=== PATIENT | female | born 1945 | race Asian ===

== ENCOUNTER 2018-08-10 13:29 | Inpatient (IN) | payer OTHER ==
[~2018-08-10] VITALS: Ht 149.9 cm; Wt 43.5 kg
[2018-08-10] MEDS ORDERED: POTASSIUM CHLORIDE (SR) 20 MEQ TAB PO STA (15:20)
[2018-08-10] MEDS ORDERED: POTASSIUM CHLORIDE 100 ML IVPB ONE (15:30)
[2018-08-10] MEDS ORDERED: AMLO5TAB4 PO (15:56)
[2018-08-10] MEDS ORDERED: LOSA50TA14 PO (15:57)
[2018-08-10] MEDS ORDERED: SOD CHLORIDE 0.9% 1,000 ML IV STA (16:32)
[2018-08-10] MEDS ORDERED: ONDANSETRON 4 MG INJ IV PRN ×2 (17:00→19:30)
[2018-08-10] MEDS ORDERED: ACETAMINOPHEN 325 MG TAB PO PRN ×2 (17:00→19:30)
--- NOTE | 2018-08-10 18:24 | ERD ---
ER Documentation Chief Complaint Chief Complaint ASYMTOMATIC, SEND BY CLINIC DUE K 2.8 HPI Patient is a 73-year-old female with "kidney issues" and hypertension who presents for low potassium. The patient was sent by the primary doctor Dr. Baez for potassium issues. The patient's potassium was 2.8 on outpatient laboratory studies. The patient has no symptoms at this time. Upon review of old medical records this is the patient's first visit to the emergency department. ROS All systems reviewed and are negative except as per history of present illness. Medications Home Meds Reported Medications Losartan Potassium* (Losartan Potassium*) 50 Mg Tablet, 50 MG PO DAILY, TAB 08/10/18 Amlodipine Besylate* (Norvasc*) 5 Mg Tablet, 5 MG PO DAILY, TAB 08/10/18 Allergies Allergies: Coded Allergies: No Known Allergy (Unverified , 08/10/18) PMhx/Soc Hypertension and "kidney issues" Hx Alcohol Use: No Hx Substance Use: No Hx Tobacco Use: No Smoking Status: Never smoker FmHx Family History: No diabetes Physical Exam Vitals Vital Signs Date Temp Pulse Resp B/P (MAP) Pulse Ox O2 O2 Flow FiO2 Time Delivery Rate 08/10/18 71 18 181/91 98 Room Air 18:17 (121) 08/10/18 78 16 181/74 99 Room Air 16:00 (109) 08/10/18 97.3 80 18 213/95 99 13:31 (134) Physical Exam Const: No acute distress Head: Atraumatic Eyes: Normal Conjunctiva ENT: Normal External Ears, Nose and Mouth. Neck: Full range of motion. No meningismus. Resp: Clear to auscultation bilaterally Cardio: Regular rate and rhythm, no murmurs Abd: Soft, non tender, non distended. Normal bowel sounds Skin: No petechiae or rashes Back: No midline or flank tenderness Ext: No cyanosis, or edema Neur: Awake and alert Psych: Normal Mood and Affect Result Diagram: 08/10/18 1445 08/10/18 1445 Results 24 hrs Laboratory Tests Test 08/10/18 14:45 White Blood Count 6.0 10^3/ul Red Blood Count 4.40 10^6/ul Hemoglobin 8.6 g/dl Hematocrit 27.7 % Mean Corpuscular Volume 63.0 fl Mean Corpuscular Hemoglobin 19.5 pg Mean Corpuscular Hemoglobin Concent 31.0 g/dl Red Cell Distribution Width 16.9 % Platelet Count 343 10^3/UL Mean Platelet Volume 10.6 fl Immature Granulocytes % 0.300 % Neutrophils % 56.6 % Lymphocytes % 34.6 % Monocytes % 7.4 % Eosinophils % 0.8 % Basophils % 0.3 % Nucleated Red Blood Cells % 0.0 /100WBC Immature Granulocytes # 0.020 10^3/ul Neutrophils # 3.4 10^3/ul Lymphocytes # 2.1 10^3/ul Monocytes # 0.4 10^3/ul Eosinophils # 0.1 10^3/ul Basophils # 0.0 10^3/ul Nucleated Red Blood Cells # 0.0 10^3/ul Sodium Level 144 mmol/L Potassium Level 2.5 mmol/L Chloride Level 97 mmol/L Carbon Dioxide Level 34 mmol/L Anion Gap 13 Blood Urea Nitrogen 39 mg/dl Creatinine 2.20 mg/dl Est Glomerular Filtrat Rate mL/min mL/min Glucose Level 108 mg/dl Calcium Level 9.8 mg/dl Troponin I 0.031 ng/ml Current Medications Medications Dose Sig/Trena Start Time Status Last (Trade) Ordered Route PRN Stop Time Admin Dose Reason Admin Potassium 40 meq ONCE STAT 08/10/18 DC 08/10/18 Chloride PO 15:20 08/10/18 15:50 (Klor-Con 20) 15:21 Potassium 100 ml @ ONCE ONCE 08/10/18 DC 08/10/18 Chloride 50 mls/hr IVPB 15:30 08/10/18 15:50 17:29 Sodium 1,000 ml @ Q1H STAT 08/10/18 DC Chloride 1,000 mls/hr IV 16:32 08/10/18 17:31 Ondansetron 4 mg ER BRIDGE 08/10/18 HCl (Zofran PRN IV 17:00 08/11/18 Inj) NAUSEA/VOMITI 16:59 NG 650 mg ER BRIDGE 08/10/18 Acetaminophen PRN PO 17:00 08/11/18 (Tylenol .MILD PAIN 16:59 Tab) 1-3 OR TEMP Labetalol 20 mg ONCE ONCE 08/10/18 HCl IV 18:30 08/10/18 (Labetalol) 18:31 Procedures/MDM EKG read by me: Rate/Rhythm: Regular rate and rhythm at a normal rate Intervals: Normal Impression: No evidence of ischemia or arrhythmia Patient is a 73-year-old female presents with hypokalemia. The patient had a potassium of 2.5 here in the emergency department. She was given both IV and p.o. potassium. The patient was also found to have a creatinine of greater than 2. I do not have an old creatinine to compare to so this is potentially acute renal failure. The patient will be admitted to the care of the panel team to a telemetry bed. The patient also had hypertension was given labetalol. The patient will be admitted for inpatient stay and treatment. Critical Care: Time: 35 minutes excluding all billable procedures. Treatments/Evaluations: Close monitoring and treatment of unstable vital signs, cardiorespiratory, and neurologic status, while maintaining tight balance of fluid, respiratory, and cardiac interventions. Departure Diagnosis: Primary Impression: Hypokalemia Additional Impressions: HTN (hypertension) Hypertension type: essential hypertension Qualified Codes: I10 - Essential (primary) hypertension ARF (acute renal failure) Acute renal failure type: unspecified Qualified Codes: N17.9 - Acute kidney failure, unspecified Condition: ROSALIND Singletary MD August 10, 2018 18:24
[2018-08-10] MEDS ORDERED: LABETALOL HCL 20MG INJ IV ONE (18:30)
[2018-08-10] MEDS ORDERED: NACL 0.9% 3 ML SYG IV SCH (19:30)
[2018-08-10] MEDS ORDERED: ACETAMINOPHEN 650 MG SUPP PR PRN (19:30)
[2018-08-10] MEDS ORDERED: BISACODYL (EC) 5 MG TAB PO PRN (19:30)
[2018-08-10] MEDS ORDERED: DOCUSATE SODIUM 100 MG CAP PO PRN (19:30)
[2018-08-10] MEDS ORDERED: MAGNESIUM HYDROXIDE 30ML CUP PO PRN (19:30)
[2018-08-10 21:00] VITALS: Ht 149.9 cm; Wt 43.5 kg
[2018-08-10] MEDS: hydrALAzine 20 MG INJ IV PRN (21:47)
[2018-08-10] MEDS: NS + KCL 20 MEQ 1,000 ML IV SCH (21:50)
[2018-08-10 21:54] VITALS: PULSE 80
[2018-08-10 22:06] VITALS: BP 184/90; PULSE 78; RESP 18
--- NOTE | 2018-08-10 22:40 | QN ---
Documentation Comment [id number] ABIOLA LINCOLN MD August 10, 2018 22:40
--- NOTE | 2018-08-10 23:50 | HP ---
DATE OF ADMISSION: 08/10/2018 HISTORY OF PRESENT ILLNESS: The patient is a 73-year-old female with history of hypertension, recently came from [place] and was seen by the PMD and here for hypokalemia. Potassium 2.5, BUN 39, creatinine 2.20. The patient does not know if she has any history of kidney disease. The patient is going to be admitted for further management. PAST MEDICAL HISTORY: Positive for hypertension. ALLERGY HISTORY: SHE DENIES. SOCIAL HISTORY: She denies. MEDICATION HISTORY: At home, the patient was on: 1. Losartan. 2. Tylenol. REVIEW OF SYSTEMS: HEENT: Unremarkable. RESPIRATORY: Unremarkable. CARDIOVASCULAR: Unremarkable. ABDOMEN: Unremarkable. EXTREMITIES: No swelling. CENTRAL NERVOUS SYSTEM: Unremarkable. GENITOURINARY: No dysuria, hematuria, history of kidney stone, no history of NSAID abuse. SKIN: No history of skin rash. PHYSICAL EXAMINATION: GENERAL: The patient is awake, alert. VITAL SIGNS: Pulse of 64, blood pressure of 178. HEAD: Atraumatic, normocephalic. Pupils equal, reactive to light. NECK: Supple, no JVD. LUNGS: Clear. CARDIOVASCULAR: S1, S2 are normal. ABDOMEN: Soft, nontender. Bowel sounds positive. No palpable mass or hepatosplenomegaly. EXTREMITIES: No cyanosis, clubbing or edema. CENTRAL NERVOUS SYSTEM: The patient is awake, alert, no focal deficit. LABORATORY DATA: Potassium 4.5, BUN 39, creatinine 2.20, hematocrit 27.7. IMPRESSION: 1. Hypokalemia. 2. Uncontrolled hypertension. 3. Possible underlying chronic kidney disease due to hypertensive nephrosclerosis. 4. Possible anemia of chronic kidney disease. PLAN: Plan is to admit this patient, ultrasound of the kidney, UA, urine sodium, urine protein creatinine ratio. The patient will also have IV fluid with potassium supplementation for blood pressure control. Dictated By: ABIOLA CARROLL/NAKUL Conf#: [id number] DID#: [id number] MTDD
[2018-08-11] VITALS (16 sets, daily range): BP systolic 135–178; BP diastolic 62–89; PULSE 67–90; RESP 17–20
[2018-08-11] MEDS: PANTOPRAZOLE (EC) 40 MG TAB PO SCH (05:03)
[2018-08-11] MEDS: LOSARTAN 50 MG TAB PO SCH (08:34)
[2018-08-11] MEDS: hydrALAzine 20 MG INJ IV PRN ×2 (08:34→17:01)
[2018-08-11] MEDS ORDERED: AMLODIPINE 5 MG TAB PO SCH (09:00)
[2018-08-11] MEDS ORDERED: POTASSIUM CHLORIDE (SR) 20 MEQ TAB PO STA (09:18)
[2018-08-11] MEDS: POTASSIUM CHLORIDE 100 ML IVPB SCH ×3 (11:30→17:06)
[2018-08-11] MEDS: NS + KCL 20 MEQ 1,000 ML IV SCH ×2 (11:50→17:06)
--- NOTE | 2018-08-11 13:23 | PN ---
Date/Time of Note Date/Time of Note DATE: 08/11/18 TIME: 13:18 Assessment/Plan VTE Prophylaxis Pharmacological prophylaxis: NA/contraindicated Pharm contraindication: low risk/ambulating Lines/Catheters IV Catheter Type (from Nrsg): Saline Lock Assessment/Plan Assessment/Plan 1. Hypokalemia.? reason 2. hypertensive urgency 3. Possible underlying chronic kidney disease due to hypertensive nephrosclerosis.with GERBER 4. Possible anemia of chronic kidney disease. PLAN - aggressive k REPLETEION - Will get urine k to calculate TTKG - Increase amlodipine - cw iv fluid with k - cr trending down Result Diagram: 08/11/1811 08/11/18 0711 Results 24hrs Laboratory Tests Test 08/10/18 14:45 08/11/18 00:01 08/11/18 07:11 White Blood Count 6.0 4.0 #L Red Blood Count 4.40 4.00 L Hemoglobin 8.6 L 7.8 L Hematocrit 27.7 L 25.0 L Mean Corpuscular Volume 63.0 L 62.5 L Mean Corpuscular Hemoglobin 19.5 L 19.5 L Mean Corpuscular Hemoglobin Concent 31.0 L 31.2 L Red Cell Distribution Width 16.9 H 16.8 H Platelet Count 343 345 Mean Platelet Volume 10.6 H 9.9 Immature Granulocytes % 0.300 0.000 L Neutrophils % 56.6 51.8 Lymphocytes % 34.6 35.8 Monocytes % 7.4 10.2 Eosinophils % 0.8 1.0 Basophils % 0.3 1.2 Nucleated Red Blood Cells % 0.0 0.0 Immature Granulocytes # 0.020 0.000 Neutrophils # 3.4 2.1 Lymphocytes # 2.1 1.4 Monocytes # 0.4 0.4 Eosinophils # 0.1 0.0 Basophils # 0.0 0.1 Nucleated Red Blood Cells # 0.0 0.0 Sodium Level 144 148 H Potassium Level 2.5 *L 2.7 *L Chloride Level 97 107 # Carbon Dioxide Level 34 H 31 Anion Gap 13 10 Blood Urea Nitrogen 39 H 34 H Creatinine 2.20 H 1.81 H Est Glomerular Filtrat Rate mL/min Glucose Level 108 95 Calcium Level 9.8 9.5 Troponin I 0.031 Parathyroid Hormone (Intact) 177.4 H Urine Osmolality 270 Urine Random Creatinine 15.09 L Urine Random Sodium 96 H Urine Protein/Creatinine Ratio 5.43 Urine Total Protein 82.0 H Total Bilirubin 0.5 Direct Bilirubin 0.00 Indirect Bilirubin 0.5 Aspartate Amino Transf (AST/SGOT) 32 Alanine Aminotransferase (ALT/SGPT) 12 L Alkaline Phosphatase 73 Total Protein 7.6 Albumin 3.8 Globulin 3.80 H Albumin/Globulin Ratio 1.00 Triglycerides Level 86 Cholesterol Level 212 H LDL Cholesterol, Calculated 134 HDL Cholesterol 61 Cholesterol/HDL Ratio 3.4 Subjective 24 Hr Interval Summary Free Text/Dictation Denies any complaints. k 2.7 today Exam/Review of Systems Exam Vitals Vital Signs Date Temp Pulse Resp B/P (MAP) Pulse Ox O2 O2 Flow FiO2 Time Delivery Rate 08/11/18 74 12:46 08/11/18 98.0 20 148/70 96 Room Air 11:10 (96) Intake and Output 08/10/18 08/10/18 08/11/18 1515:00 23:00 07:00 IntakeIntake Total 900 ml BalanceBalance 900 ml Exam EAD: Atraumatic, normocephalic. Pupils equal, reactive to light. NECK: Supple, no JVD. LUNGS: Clear. CARDIOVASCULAR: S1, S2 are normal. ABDOMEN: Soft, nontender. Bowel sounds positive. No palpable mass or hepatosplenomegaly. EXTREMITIES: No cyanosis, clubbing or edema. CENTRAL NERVOUS SYSTEM: The patient is awake, alert, no focal deficit. Results Results 24hrs Laboratory Tests Test 08/10/18 14:45 08/11/18 00:01 08/11/18 07:11 White Blood Count 6.0 4.0 #L Red Blood Count 4.40 4.00 L Hemoglobin 8.6 L 7.8 L Hematocrit 27.7 L 25.0 L Mean Corpuscular Volume 63.0 L 62.5 L Mean Corpuscular Hemoglobin 19.5 L 19.5 L Mean Corpuscular Hemoglobin Concent 31.0 L 31.2 L Red Cell Distribution Width 16.9 H 16.8 H Platelet Count 343 345 Mean Platelet Volume 10.6 H 9.9 Immature Granulocytes % 0.300 0.000 L Neutrophils % 56.6 51.8 Lymphocytes % 34.6 35.8 Monocytes % 7.4 10.2 Eosinophils % 0.8 1.0 Basophils % 0.3 1.2 Nucleated Red Blood Cells % 0.0 0.0 Immature Granulocytes # 0.020 0.000 Neutrophils # 3.4 2.1 Lymphocytes # 2.1 1.4 Monocytes # 0.4 0.4 Eosinophils # 0.1 0.0 Basophils # 0.0 0.1 Nucleated Red Blood Cells # 0.0 0.0 Sodium Level 144 148 H Potassium Level 2.5 *L 2.7 *L Chloride Level 97 107 # Carbon Dioxide Level 34 H 31 Anion Gap 13 10 Blood Urea Nitrogen 39 H 34 H Creatinine 2.20 H 1.81 H Est Glomerular Filtrat Rate mL/min Glucose Level 108 95 Calcium Level 9.8 9.5 Troponin I 0.031 Parathyroid Hormone (Intact) 177.4 H Urine Osmolality 270 Urine Random Creatinine 15.09 L Urine Random Sodium 96 H Urine Protein/Creatinine Ratio 5.43 Urine Total Protein 82.0 H Total Bilirubin 0.5 Direct Bilirubin 0.00 Indirect Bilirubin 0.5 Aspartate Amino Transf (AST/SGOT) 32 Alanine Aminotransferase (ALT/SGPT) 12 L Alkaline Phosphatase 73 Total Protein 7.6 Albumin 3.8 Globulin 3.80 H Albumin/Globulin Ratio 1.00 Triglycerides Level 86 Cholesterol Level 212 H LDL Cholesterol, Calculated 134 HDL Cholesterol 61 Cholesterol/HDL Ratio 3.4 Medications Medication Current Medications Amlodipine Besylate (Norvasc) 5 mg DAILY PO Last administered on 08/11/18at 0 8:34; Admin Dose 5 MG; Start 08/11/18 at 09:00 Losartan Potassium (Cozaar) 50 mg DAILY PO Last administered on 08/11/18at 08:34; Admin Dose 50 MG; Start 08/11/18 at 09:00 Potassium Chloride/Sodium Chloride 1,000 ml @ 60 mls/hr [id number] IV Last administered on 08/10/18at 21:50; Admin Dose 60 MLS/HR; Start 08/10/18 at 19:10 IV Flush (NS 3 ml) 3 ml PER PROTOCOL IV ; Start 08/10/18 at 19:30 Ondansetron HCl (Zofran Inj) 4 mg Q6H PRN IV NAUSEA/VOMITING; Start 08/10/18 at 19:30 Acetaminophen (Tylenol Tab) 650 mg Q6H PRN PO .PAIN 1-3 OR TEMP; Start 08/10/18 at 19:30 Acetaminophen (Tylenol Supp) 650 mg Q6H PRN [place] .PAIN 1-3 OR TEMP; Start 08/10/18 at 19:30 Docusate Sodium (Colace) 100 mg Q12H PRN PO .CONSTIPATION; Start 08/10/18 at 19:30 Magnesium Hydroxide (Milk Of Mag) 30 ml DAILY PRN PO .CONSTIPATION; Start 08/10/18 at 19:30 Bisacodyl (Dulcolax) 5 mg DAILY PRN PO .CONSTIPATION; Start 08/10/18 at 19:30 Pantoprazole (Protonix Tab) 40 mg DAILY@06 PO Last administered on 08/11/18at 05:03; Admin Dose 40 MG; Start 08/11/18 at 06:00 Hydralazine HCl (Apresoline) 10 mg Q6H PRN IV ELEVATED BLOOD PRESSURE Last administered on 08/11/18at 08:34; Admin Dose 10 MG; Start 08/10/18 at 22:00 Potassium Chloride 100 ml @ 50 mls/hr Q2H IVPB Last administered on 08/11/18at 11:30; Admin Dose 50 MLS/HR; Start 08/11/18 at 10:00; Stop 08/11/18 at 15:59 KATIANA VERGARA MD August 11, 2018 13:23
[2018-08-11] MEDS: AMLODIPINE 5 MG TAB PO SCH (20:48)
[2018-08-11] MEDS: POTASSIUM CHLORIDE (SR) 20 MEQ TAB PO SCH (21:09)
[2018-08-12] VITALS (14 sets, daily range): BP systolic 125–169; BP diastolic 60–77; PULSE 68–88; RESP 17–18
[2018-08-12] MEDS: hydrALAzine 20 MG INJ IV PRN (03:44)
[2018-08-12] MEDS: PANTOPRAZOLE (EC) 40 MG TAB PO SCH (05:11)
[2018-08-12] MEDS: POTASSIUM CHLORIDE (SR) 20 MEQ TAB PO SCH ×2 (08:44→20:34)
[2018-08-12] MEDS: AMLODIPINE 5 MG TAB PO SCH ×2 (08:46→20:35)
[2018-08-12] MEDS: LOSARTAN 50 MG TAB PO SCH (08:46)
[2018-08-12] MEDS: POTASSIUM CHLORIDE 100 ML IVPB SCH ×3 (12:12→17:56)
--- NOTE | 2018-08-12 16:01 | PN ---
Date/Time of Note Date/Time of Note DATE: 08/12/18 TIME: 16:00 Assessment/Plan VTE Prophylaxis Risk score (from Ns)>0 risk: 2 SCD applied (from Nsg): Yes Pharmacological prophylaxis: LMWH Lines/Catheters IV Catheter Type (from Nrs): Saline Lock Assessment/Plan Hospital Course 1. Hypokalemia due to unknown reason, more likely kidney related 2. hypertensive urgency 3. Possible underlying chronic kidney disease due to hypertensive nephrosclerosis with GERBER 4. Possible anemia of chronic kidney disease. 5. Secondary hyperparathyroidism?. Assessment/Plan - aggressive k repletion - urine k to calculate TTKG - c/w amlodipine - cw iv fluid with k - cr trending down -DVT proph. start Lovenox -GI proph. Protonix Result Diagram: 08/11/18 0711 08/12/18 0606 Results 24hrs Laboratory Tests Test 08/11/18 16:30 08/11/18 19:00 08/12/18 06:06 Urine Random Potassium 25.8 Potassium Level 2.8 *L 2.8 *L Sodium Level 146 H Chloride Level 110 Carbon Dioxide Level 28 Anion Gap 8 Blood Urea Nitrogen 31 H Creatinine 2.10 H Est Glomerular Filtrat Rate mL/min Glucose Level 106 Calcium Level 9.1 Subjective 24 Hr Interval Summary Constitutional: no complaints, improved Exam/Review of Systems Exam Vitals Vital Signs Date Temp Pulse Resp B/P (MAP) Pulse Ox O2 O2 Flow FiO2 Time Delivery Rate 08/12/18 98.0 85 18 127/60 99 Room Air 15:07 (82) Intake and Output 08/11/18 08/11/18 08/12/18 1515:00 23:00 07:00 IntakeIntake Total 1500 ml 450 ml BalanceBalance 1500 ml 450 ml Constitutional: alert, oriented Respiratory: clear to auscultation Cardiovascular: regular rate and rhythm Gastrointestinal: soft Genitourinary - Female: CVA tenderness; No nl adnexae, No nl external genitalia, No CMT, No uterus, No other Results Results 24hrs Laboratory Tests Test 08/11/18 16:30 08/11/18 19:00 08/12/18 06:06 Urine Random Potassium 25.8 Potassium Level 2.8 *L 2.8 *L Sodium Level 146 H Chloride Level 110 Carbon Dioxide Level 28 Anion Gap 8 Blood Urea Nitrogen 31 H Creatinine 2.10 H Est Glomerular Filtrat Rate mL/min Glucose Level 106 Calcium Level 9.1 Medications Medication Current Medications Losartan Potassium (Cozaar) 50 mg DAILY PO Last administered on 08/12/18at 08:46; Admin Dose 50 MG; Start 08/11/18 at 09:00 Potassium Chloride/Sodium Chloride 1,000 ml @ 60 mls/hr [id number] IV Last administered on 08/11/18at 17:06; Admin Dose 60 MLS/HR; Start 08/10/18 at 19:10 IV Flush (NS 3 ml) 3 ml PER PROTOCOL IV ; Start 08/10/18 at 19:30 Ondansetron HCl (Zofran Inj) 4 mg Q6H PRN IV NAUSEA/VOMITING; Start 08/10/18 at 19:30 Acetaminophen (Tylenol Tab) 650 mg Q6H PRN PO .PAIN 1-3 OR TEMP; Start 08/10/18 at 19:30 Acetaminophen (Tylenol Supp) 650 mg Q6H PRN [place] .PAIN 1-3 OR TEMP; Start 08/10/18 at 19:30 Docusate Sodium (Colace) 100 mg Q12H PRN PO .CONSTIPATION; Start 08/10/18 at 19:30 Magnesium Hydroxide (Milk Of Mag) 30 ml DAILY PRN PO .CONSTIPATION; Start 08/10/18 at 19:30 Bisacodyl (Dulcolax) 5 mg DAILY PRN PO .CONSTIPATION; Start 08/10/18 at 19:30 Pantoprazole (Protonix Tab) 40 mg DAILY@06 PO Last administered on 08/12/18at 05:11; Admin Dose 40 MG; Start 08/11/18 at 06:00 Hydralazine HCl (Apresoline) 10 mg Q6H PRN IV ELEVATED BLOOD PRESSURE Last administered on 08/12/18at 03:44; Admin Dose 10 MG; Start 08/10/18 at 22:00 Amlodipine Besylate (Norvasc) 5 mg BID PO Last administered on 08/12/18at 08:46; Admin Dose 5 MG; Start 08/11/18 at 21:00 Potassium Chloride 100 ml @ 50 mls/hr Q2H IVPB Last administered on 08/12/18at 15:41; Admin Dose 50 MLS/HR; Start 5/10/19 at 11:30; Stop 08/12/18 at 17:29 Potassium Chloride (Klor-Con 20) 20 meq TID PO ; Start 08/12/18 at 21:00 FRANCISCO ASHFORD August 12, 2018 16:01
[2018-08-12] MEDS: NS + KCL 20 MEQ 1,000 ML IV SCH (21:10)
[2018-08-13] VITALS (14 sets, daily range): BP systolic 145–177; BP diastolic 72–96; PULSE 64–88; RESP 17–18
[2018-08-13] MEDS: PANTOPRAZOLE (EC) 40 MG TAB PO SCH (05:00)
[2018-08-13] MEDS: NS + KCL 20 MEQ 1,000 ML IV SCH (05:01)
[2018-08-13] MEDS: ENOXAPARIN 30 MG/0.3 ML SYG SC SCH (09:00)
[2018-08-13] MEDS: AMLODIPINE 5 MG TAB PO SCH ×2 (09:24→20:33)
[2018-08-13] MEDS: LOSARTAN 50 MG TAB PO SCH (09:24)
[2018-08-13] MEDS: POTASSIUM CHLORIDE (SR) 20 MEQ TAB PO SCH ×3 (09:24→20:33)
[2018-08-13] MEDS: hydrALAzine 20 MG INJ IV PRN (11:37)
--- NOTE | 2018-08-13 14:50 | PN ---
Date/Time of Note Date/Time of Note DATE: 08/13/18 TIME: 14:46 Assessment/Plan VTE Prophylaxis Risk score (from Ns)>0 risk: 2 SCD applied (from Ns): Yes Pharmacological prophylaxis: LMWH Lines/Catheters IV C[facility]ter Type (from [facility] Peripheral IV Assessment/Plan Hospital Course 1. Hypokalemia due to unknown reason, more likely kidney related 2. hypertensive urgency, resolved 3. Possible underlying chronic kidney disease due to hypertensive nephrosclerosis with GERBER 4. Possible anemia of chronic kidney disease, no deficit of iron. 5. Secondary hyperparathyroidism, PTH elevated, calcium ionized is normal?. 6. Bilateral simple kidney cysts. Assessment/Plan - aggressive k repletion - Ferrlicit IV -epogen once -better hypertension control - c/w amlodipine, increase Losartan - cw iv fluid with k - cr trending down -DVT proph. Lovenox -GI proph. Protonix Result Diagram: 08/13/18 0557 08/13/18 0557 Results 24hrs Laboratory Tests Test 08/12/18 16:25 08/13/18 05:57 Magnesium Level 1.9 White Blood Count 6.1 # Red Blood Count 3.88 L Hemoglobin 7.5 L Hematocrit 24.0 L Mean Corpuscular Volume 61.9 L Mean Corpuscular Hemoglobin 19.3 L Mean Corpuscular Hemoglobin Concent 31.3 L Red Cell Distribution Width 17.6 H Platelet Count 329 Mean Platelet Volume 10.2 Immature Granulocytes % 0.200 Neutrophils % 59.0 Lymphocytes % 31.3 Monocytes % 7.7 Eosinophils % 1.5 Basophils % 0.3 Nucleated Red Blood Cells % 0.0 Immature Granulocytes # 0.010 Neutrophils # 3.6 Lymphocytes # 1.9 Monocytes # 0.5 Eosinophils # 0.1 Basophils # 0.0 Nucleated Red Blood Cells # 0.0 Sodium Level 147 H Potassium Level 3.5 Chloride Level 114 H Carbon Dioxide Level 24 Anion Gap 9 Blood Urea Nitrogen 25 H Creatinine 1.95 H Est Glomerular Filtrat Rate mL/min Glucose Level 103 Uric Acid 7.0 Calcium Level 9.3 Ionized Calcium (Measured) 1.3 Iron Level 66 Total Iron Binding Capacity 252 Percent Iron Saturation 26 Vitamin D 1,25-Dihydroxy 37.4 Subjective 24 Hr Interval Summary Constitutional: no complaints, improved Exam/Review of Systems Exam Vitals Vital Signs Date Temp Pulse Resp B/P (MAP) Pulse Ox O2 O2 Flow FiO2 Time Delivery Rate 08/13/18 85 13:24 08/13/18 145/72 12:26 (96) 08/13/18 98.0 18 97 Room Air 11:24 Intake and Output 08/12/18 08/12/18 08/13/18 1515:00 23:00 07:00 IntakeIntake Total 870 ml 1065 ml OutputOutput Total 1500 ml BalanceBalance 870 ml -435 ml Constitutional: alert, oriented Respiratory: clear to auscultation Cardiovascular: regular rate and rhythm Gastrointestinal: soft Genitourinary - Female: CVA tenderness; No nl adnexae, No nl external genitalia, No CMT, No uterus, No other Results Results 24hrs Laboratory Tests Test 08/12/18 16:25 08/13/18 05:57 Magnesium Level 1.9 White Blood Count 6.1 # Red Blood Count 3.88 L Hemoglobin 7.5 L Hematocrit 24.0 L Mean Corpuscular Volume 61.9 L Mean Corpuscular Hemoglobin 19.3 L Mean Corpuscular Hemoglobin Concent 31.3 L Red Cell Distribution Width 17.6 H Platelet Count 329 Mean Platelet Volume 10.2 Immature Granulocytes % 0.200 Neutrophils % 59.0 Lymphocytes % 31.3 Monocytes % 7.7 Eosinophils % 1.5 Basophils % 0.3 Nucleated Red Blood Cells % 0.0 Immature Granulocytes # 0.010 Neutrophils # 3.6 Lymphocytes # 1.9 Monocytes # 0.5 Eosinophils # 0.1 Basophils # 0.0 Nucleated Red Blood Cells # 0.0 Sodium Level 147 H Potassium Level 3.5 Chloride Level 114 H Carbon Dioxide Level 24 Anion Gap 9 Blood Urea Nitrogen 25 H Creatinine 1.95 H Est Glomerular Filtrat Rate mL/min Glucose Level 103 Uric Acid 7.0 Calcium Level 9.3 Ionized Calcium (Measured) 1.3 Iron Level 66 Total Iron Binding Capacity 252 Percent Iron Saturation 26 Vitamin D 1,25-Dihydroxy 37.4 Medications Medication Current Medications Losartan Potassium (Cozaar) 50 mg DAILY PO Last administered on 08/13/18at 09:24; Admin Dose 50 MG; Start 08/11/18 at 09:00 Potassium Chloride/Sodium Chloride 1,000 ml @ 60 mls/hr [id number] IV Last administered on 08/13/18at 05:01; Admin Dose 60 MLS/HR; Start 08/10/18 at 19:10 IV Flush (NS 3 ml) 3 ml PER PROTOCOL IV ; Start 08/10/18 at 19:30 Ondansetron HCl (Zofran Inj) 4 mg Q6H PRN IV NAUSEA/VOMITING; Start 08/10/18 at 19:30 Acetaminophen (Tylenol Tab) 650 mg Q6H PRN PO .PAIN 1-3 OR TEMP; Start 08/10/18 at 19:30 Acetaminophen (Tylenol Supp) 650 mg Q6H PRN [place] .PAIN 1-3 OR TEMP; Start 08/10/18 at 19:30 Docusate Sodium (Colace) 100 mg Q12H PRN PO .CONSTIPATION; Start 08/10/18 at 19:30 Magnesium Hydroxide (Milk Of Mag) 30 ml DAILY PRN PO .CONSTIPATION; Start 08/10/18 at 19:30 Bisacodyl (Dulcolax) 5 mg DAILY PRN PO .CONSTIPATION; Start 08/10/18 at 19:30 Pantoprazole (Protonix Tab) 40 mg DAILY@06 PO Last administered on 08/13/18at 05:00; Admin Dose 40 MG; Start 08/11/18 at 06:00 Hydralazine HCl (Apresoline) 10 mg Q6H PRN IV ELEVATED BLOOD PRESSURE Last administered on 08/13/18at 11:37; Admin Dose 10 MG; Start 08/10/18 at 22:00 Amlodipine Besylate (Norvasc) 5 mg BID PO Last administered on 08/13/18at 09:24; Admin Dose 5 MG; Start 08/11/18 at 21:00 Potassium Chloride (Klor-Con 20) 20 meq TID PO Last administered on 08/13/18at 12:34; Admin Dose 20 MEQ; Start 08/12/18 at 21:00 Enoxaparin Sodium (Lovenox) 30 mg DAILY SC ; Start 08/13/18 at 09:00 FRANCISCO ASHFORD August 13, 2018 14:50
[2018-08-13] MEDS ORDERED: EPOETIN ALFA-EPBX (ESRD) 4,000 UNIT/ML VIAL SC ONE (16:00)
[2018-08-13] MEDS: SOD FERRIC GLUC COMPLX 125 MG in SOD CHLORIDE 0.9% 100 ML IVPB SCH (17:18)
[2018-08-14] VITALS (11 sets, daily range): BP systolic 141–173; BP diastolic 70–90; PULSE 64–91; RESP 16–18
[2018-08-14] MEDS: PANTOPRAZOLE (EC) 40 MG TAB PO SCH (05:04)
[2018-08-14] MEDS: LOSARTAN 50 MG TAB PO SCH (08:58)
[2018-08-14] MEDS: AMLODIPINE 5 MG TAB PO SCH ×2 (08:58→20:48)
[2018-08-14] MEDS: POTASSIUM CHLORIDE (SR) 20 MEQ TAB PO SCH ×3 (08:58→20:48)
[2018-08-14] MEDS: ENOXAPARIN 30 MG/0.3 ML SYG SC SCH (09:02)
--- NOTE | 2018-08-14 10:36 | PN ---
Date/Time of Note Date/Time of Note DATE: 08/14/18 TIME: 10:34 Assessment/Plan VTE Prophylaxis Risk score (from [facility] [place] risk: 2 SCD applied (from Ns): Yes Pharmacological prophylaxis: LMWH Lines/Catheters IV [facility]ter [facility] (from [facility] Saline Lock Assessment/Plan Hospital Course 1. Hypokalemia due to unknown reason, more likely kidney related 2. hypertensive urgency, resolved 3. Possible underlying chronic kidney disease due to hypertensive nephrosclerosis with GERBER 4. Possible anemia of chronic kidney disease, no deficit of iron. 5. Secondary hyperparathyroidism, PTH elevated, calcium ionized is normal?. 6. Bilateral simple kidney cysts. 7. Hepatitis B pos a/b Assessment/Plan - aggressive k repletion - Ferrlicit IV -epogen once -better hypertension control - c/w amlodipine, increase Losartan - cw iv fluid with k - cr trending down -DVT proph. Lovenox -GI proph. Protonix Result Diagram: 08/14/18 0711 08/14/18 0711 Results 24hrs Laboratory Tests Test 08/13/18 15:09 08/13/18 15:10 08/13/18 18:00 08/14/18 07:11 Erythrocyte 45 H Sedimentation Rate Total Protein (PEP) 7.1 Albumin (PEP) Pending Pfpad-[id number] Pending Ymxwz-1-Tbasnjblt Pending Beta Globulins Pending Gamma Globulins Pending Protein Pending Electrophoresis Inte rpret Serum Immunofixation Pending Anti-Nuclear Pending Antibody Screen Complement C3 79 L Complement C4 31 Hepatitis B Surface NEGATIVE Antigen Hepatitis B Core REACTIVE H Total Antibody Hepatitis B Core IgM Pending Ab Confirm Hepatitis C Antibody NEGATIVE Urine Collection 24 Duration Urine Total Volume 3100 (Protein) Urine Total Protein 1333.0 H 24 Hour Urine Total Volume 3100 (Sodium) Urine Sodium 24 Hour > 198 Urine Total Volume 3100 (Potassium) Urine Potassium 24 78.7 Hour Urine Potassium 24 Timed Urine Chloride Pending mEq/hr White Blood Count 6.6 Red Blood Count 3.93 L Hemoglobin 7.6 L Hematocrit 24.4 L Mean Corpuscular 62.1 L Volume Mean Corpuscular 19.3 L Hemoglobin Mean Corpuscular 31.1 L Hemoglobin Concent Red Cell 17.2 H Distribution Width Platelet Count 327 Mean Platelet Volume 10.0 Immature 0.300 Granulocytes % Neutrophils % 62.6 Lymphocytes % 28.5 Monocytes % 7.0 Eosinophils % 1.1 Basophils % 0.5 Nucleated Red Blood 0.0 Cells % Immature 0.020 Granulocytes # Neutrophils # 4.1 Lymphocytes # 1.9 Monocytes # 0.5 Eosinophils # 0.1 Basophils # 0.0 Nucleated Red Blood 0.0 Cells # Sodium Level 144 Potassium Level 4.0 Chloride Level 111 H Carbon Dioxide Level 22 Anion Gap 11 Blood Urea Nitrogen 29 H Creatinine 1.97 H Est Glomerular Filtrat Rate mL/min Glucose Level 97 Calcium Level 9.8 Subjective 24 Hr Interval Summary Constitutional: no complaints Exam/Review of Systems Exam Vitals Vital Signs Date Temp Pulse Resp B/P (MAP) Pulse Ox O2 O2 Flow FiO2 Time Delivery Rate 08/14/18 82 09:01 08/14/18 98.1 18 160/87 97 07:24 (111) 08/13/18 Room Air 14:59 Intake and Output 08/13/18 08/13/18 08/14/18 1515:00 23:00 07:00 IntakeIntake Total 1580 ml 850 ml OutputOutput Total 900 ml BalanceBalance 680 ml 850 ml Constitutional: alert, oriented Respiratory: clear to auscultation Cardiovascular: regular rate and rhythm Gastrointestinal: soft Results Results 24hrs Laboratory Tests Test 08/13/18 15:09 08/13/18 15:10 08/13/18 18:00 08/14/18 07:11 Erythrocyte 45 H Sedimentation Rate Total Protein (PEP) 7.1 Albumin (PEP) Pending Qdzcd-8-Dtlpzosyc Pending Tmutj-2-Zdrvkrlpy Pending Beta Globulins Pending Gamma Globulins Pending Protein Pending Electrophoresis Inte rpret Serum Immunofixation Pending Anti-Nuclear Pending Antibody Screen Complement C3 79 L Complement C4 31 Hepatitis B Surface NEGATIVE Antigen Hepatitis B Core REACTIVE H Total Antibody Hepatitis B Core IgM Pending Ab Confirm Hepatitis C Antibody NEGATIVE Urine Collection 24 Duration Urine Total Volume 3100 (Protein) Urine Total Protein 1333.0 H 24 Hour Urine Total Volume 3100 (Sodium) Urine Sodium 24 Hour > 198 Urine Total Volume 3100 (Potassium) Urine Potassium 24 78.7 Hour Urine Potassium 24 Timed Urine Chloride Pending mEq/hr White Blood Count 6.6 Red Blood Count 3.93 L Hemoglobin 7.6 L Hematocrit 24.4 L Mean Corpuscular 62.1 L Volume Mean Corpuscular 19.3 L Hemoglobin Mean Corpuscular 31.1 L Hemoglobin Concent Red Cell 17.2 H Distribution Width Platelet Count 327 Mean Platelet Volume 10.0 Immature 0.300 Granulocytes % Neutrophils % 62.6 Lymphocytes % 28.5 Monocytes % 7.0 Eosinophils % 1.1 Basophils % 0.5 Nucleated Red Blood 0.0 Cells % Immature 0.020 Granulocytes # Neutrophils # 4.1 Lymphocytes # 1.9 Monocytes # 0.5 Eosinophils # 0.1 Basophils # 0.0 Nucleated Red Blood 0.0 Cells # Sodium Level 144 Potassium Level 4.0 Chloride Level 111 H Carbon Dioxide Level 22 Anion Gap 11 Blood Urea Nitrogen 29 H Creatinine 1.97 H Est Glomerular Filtrat Rate mL/min Glucose Level 97 Calcium Level 9.8 Medications Medication Current Medications IV Flush (NS 3 ml) 3 ml PER PROTOCOL IV ; Start 08/10/18 at 19:30 Ondansetron HCl (Zofran Inj) 4 mg Q6H PRN IV NAUSEA/VOMITING; Start 08/10/18 at 19:30 Acetaminophen (Tylenol Tab) 650 mg Q6H PRN PO .PAIN 1-3 OR TEMP; Start 08/10/18 at 19:30 Acetaminophen (Tylenol Supp) 650 mg Q6H PRN [place] .PAIN 1-3 OR TEMP; Start 08/10/18 at 19:30 Docusate Sodium (Colace) 100 mg Q12H PRN PO .CONSTIPATION; Start 08/10/18 at 19:30 Magnesium Hydroxide (Milk Of Mag) 30 ml DAILY PRN PO .CONSTIPATION; Start 08/10/18 at 19:30 Bisacodyl (Dulcolax) 5 mg DAILY PRN PO .CONSTIPATION; Start 08/10/18 at 19:30 Pantoprazole (Protonix Tab) 40 mg DAILY@06 PO Last administered on 08/14/18at 05:04; Admin Dose 40 MG; Start 08/11/18 at 06:00 Hydralazine HCl (Apresoline) 10 mg Q6H PRN IV ELEVATED BLOOD PRESSURE Last administered on 08/13/18at 11:37; Admin Dose 10 MG; Start 08/10/18 at 22:00 Amlodipine Besylate (Norvasc) 5 mg BID PO Last administered on 08/14/18at 08:58; Admin Dose 5 MG; Start 5/9/19 at 21:00 Potassium Chloride (Klor-Con 20) 20 meq TID PO Last administered on 08/14/18at 08:58; Admin Dose 20 MEQ; Start 08/12/18 at 21:00 Enoxaparin Sodium (Lovenox) 30 mg DAILY SC Last administered on 08/14/18at 09:02; Admin Dose 30 MG; Start 08/13/18 at 09:00 Losartan Potassium (Cozaar) 100 mg DAILY PO Last administered on 08/14/18at 08:58; Admin Dose 100 MG; Start 08/14/18 at 09:00 Ferric Sodium Gluconate Complex 125 mg/Sodium Chloride 110 ml @ 110 mls/hr DAILY@1300 IVPB Last administered on 08/13/18at 17:18; Admin Dose 110 MLS/HR; Start 08/13/18 at 16:00; Stop 08/17/18 at 13:59 FRANCISCO ASHFORD August 14, 2018 10:36
[2018-08-14] MEDS: SOD FERRIC GLUC COMPLX 125 MG in SOD CHLORIDE 0.9% 100 ML IVPB SCH (13:16)
[2018-08-14] MEDS: hydrALAzine 20 MG INJ IV PRN (16:00)
[2018-08-15 02:00] VITALS: BP 136/70; PULSE 80; RESP 18
[2018-08-15] MEDS: PANTOPRAZOLE (EC) 40 MG TAB PO SCH (05:55)
[2018-08-15 08:04] VITALS: BP 157/75; PULSE 81; RESP 16
[2018-08-15] MEDS: AMLODIPINE 5 MG TAB PO SCH ×2 (09:16→20:43)
[2018-08-15] MEDS: POTASSIUM CHLORIDE (SR) 20 MEQ TAB PO SCH ×3 (09:17→20:43)
[2018-08-15] MEDS: LOSARTAN 50 MG TAB PO SCH (09:17)
[2018-08-15] MEDS: ENOXAPARIN 30 MG/0.3 ML SYG SC SCH (09:19)
[2018-08-15] MEDS: SOD FERRIC GLUC COMPLX 125 MG in SOD CHLORIDE 0.9% 100 ML IVPB SCH (12:51)
[2018-08-15 14:11] VITALS: BP 135/56; PULSE 78; RESP 17
--- NOTE | 2018-08-15 15:05 | PN ---
Date/Time of Note Date/Time of Note DATE: 08/15/18 TIME: 15:04 Assessment/Plan VTE Prophylaxis Risk score (from Ns)>0 risk: 2 SCD applied (from Ns): Yes Pharmacological prophylaxis: NA/contraindicated Pharm contraindication: low risk/ambulating Lines/Catheters IV Catheter Type (from Nrsg): Saline Lock Urinary Cath still in place: No Assessment/Plan Assessment/Plan 1. Hypokalemia pending dionna/ renin , MG Level wnl 2. hypertensive urgency, resolved 3. Possible underlying chronic kidney disease due to hypertensive nephrosclerosis with GERBER ? with 5 gms proteinuria with low complements 4. Possible anemia of chronic kidney disease, no deficit of iron. 5. Secondary hyperparathyroidism, PTH elevated, calcium ionized is normal?. 6. Bilateral simple kidney cysts. 7. Hepatitis B pos a/b Assessment/Plan - aggressive k repletion - Ferrlicit IV -cw amlodipine/losaratn - renal biopsy, dsicussed with patient -DVT proph. Lovenox -GI proph. Protonix Result Diagram: 08/14/1871008/14/18 07 Subjective 24 Hr Interval Summary Free Text/Dictation K improved UPC 5 gms proteinuria with low complements Exam/Review of Systems Exam Vitals Vital Signs Date Temp Pulse Resp B/P (MAP) Pulse Ox O2 O2 Flow FiO2 Time Delivery Rate 08/15/18 98.3 78 17 135/56 100 Room Air 14:11 (82) Intake and Output 08/14/18 08/14/18 08/15/18 1515:00 23:00 07:00 IntakeIntake Total 110 ml 500 ml 250 ml BalanceBalance 110 ml 500 ml 250 ml Exam Constitutional: alert, oriented Respiratory: clear to auscultation Cardiovascular: regular rate and rhythm Gastrointestinal: soft Medications Medication Current Medications IV Flush (NS 3 ml) 3 ml PER PROTOCOL IV ; Start 08/10/18 at 19:30 Ondansetron HCl (Zofran Inj) 4 mg Q6H PRN IV NAUSEA/VOMITING; Start 08/10/18 at 19:30 Acetaminophen (Tylenol Tab) 650 mg Q6H PRN PO .PAIN 1-3 OR TEMP; Start 08/10/18 at 19:30 Acetaminophen (Tylenol Supp) 650 mg Q6H PRN [place] .PAIN 1-3 OR TEMP; Start 08/10/18 at 19:30 Docusate Sodium (Colace) 100 mg Q12H PRN PO .CONSTIPATION; Start 08/10/18 at 19:30 Magnesium Hydroxide (Milk Of Mag) 30 ml DAILY PRN PO .CONSTIPATION; Start 08/10/18 at 19:30 Bisacodyl (Dulcolax) 5 mg DAILY PRN PO .CONSTIPATION; Start 08/10/18 at 19:30 Pantoprazole (Protonix Tab) 40 mg DAILY@06 PO Last administered on 08/15/18 05:55; Admin Dose 40 MG; Start 08/11/18 at 06:00 Hydralazine HCl (Apresoline) 10 mg Q6H PRN IV ELEVATED BLOOD PRESSURE Last administered on 08/14/18 16:00; Admin Dose 10 MG; Start 08/10/18 at 22:00 Amlodipine Besylate (Norvasc) 5 mg BID PO Last administered on 08/15/18 09:16; Admin Dose 5 MG; Start 08/11/18 at 21:00 Potassium Chloride (Klor-Con 20) 20 meq TID PO Last administered on 08/15/18 12:22; Admin Dose 20 MEQ; Start 08/12/18 at 21:00 Enoxaparin Sodium (Lovenox) 30 mg DAILY SC Last administered on 08/15/18 09:19; Admin Dose 30 MG; Start 08/13/18 at 09:00 Losartan Potassium (Cozaar) 100 mg DAILY PO Last administered on 08/15/18 09:17; Admin Dose 100 MG; Start 08/14/18 at 09:00 Ferric Sodium Gluconate Complex 125 mg/Sodium Chloride 110 ml @ 110 mls/hr DAILY@1300 IVPB Last administered on 08/15/18 12:51; Admin Dose 110 MLS/HR; Start 08/13/18 at 16:00; Stop 08/17/18 at 13:59 Hydralazine HCl (Apresoline) 25 mg TID PO Last administered on 08/15/18 12:22; Admin Dose 25 MG; Start 08/14/18 at 13:00 KATIANA VERGARA MD August 15, 2018 15:04
[2018-08-15 20:00] VITALS: BP 152/77; PULSE 80; RESP 17
[2018-08-16] VITALS (8 sets, daily range): BP systolic 112–166; BP diastolic 58–91; PULSE 74–88; RESP 17–18
[2018-08-16] MEDS: PANTOPRAZOLE (EC) 40 MG TAB PO SCH (06:00)
[2018-08-16] MEDS: POTASSIUM CHLORIDE (SR) 20 MEQ TAB PO SCH ×3 (09:35→20:33)
[2018-08-16] MEDS: AMLODIPINE 5 MG TAB PO SCH ×2 (09:36→20:32)
[2018-08-16] MEDS: LOSARTAN 50 MG TAB PO SCH (09:37)
[2018-08-16] MEDS ORDERED: LIDOCAINE 1% (MDV) 20 ML INJ ONE (11:44)
[2018-08-16] MEDS ORDERED: SOD CHLORIDE 0.9% 500 ML ONE (12:06)
[2018-08-16] MEDS ORDERED: FENTAnyl 50 MCG/ML VIAL ONE (12:06)
[2018-08-16] MEDS ORDERED: GELATIN 12MM X 7 MM SPONGE ONE (12:06)
[2018-08-16] MEDS ORDERED: MIDAZOLAM 1 MG/ML 2 ML INJ ONE (12:06)
[2018-08-16] MEDS: SOD FERRIC GLUC COMPLX 125 MG in SOD CHLORIDE 0.9% 100 ML IVPB SCH (13:56)
--- NOTE | 2018-08-16 16:17 | PN ---
Date/Time of Note Date/Time of Note DATE: 08/16/18 TIME: 16:15 Assessment/Plan VTE Prophylaxis Risk score (from Ns)>0 risk: 2 SCD applied (from Ns): Yes Pharmacological prophylaxis: NA/contraindicated Pharm contraindication: low risk/ambulating Lines/Catheters IV [facility] (from [facility] Peripheral IV Urinary Cath still in place: No Assessment/Plan Assessment/Plan Assessment/Plan 1. Hypokalemia pending dionna/ renin , MG Level wnl 2. hypertensive urgency, resolved 3. Possible underlying chronic kidney disease due to hypertensive nephrosclerosis with GERBER ? with 5 gms proteinuria with low complements 4. Possible anemia of chronic kidney disease, no deficit of iron. 5. Secondary hyperparathyroidism, PTH elevated, calcium ionized is normal?. 6. Bilateral simple kidney cysts. 7. Hepatitis B pos a/b Assessment/Plan - aggressive k repletion - Ferrlicit IV -cw amlodipine/losaratn/hydralzine - sp renal biopsy, today with small hematoma> recehck hb today -DVT proph. Lovenox -GI proph. Protonix Result Diagram: 08/14/18 0711 08/14/18 0711 Results 24hrs Laboratory Tests Test 08/15/18 18:47 Prothrombin Time 12.3 Prothrombin Time Ratio 1.0 INR International Normalized Ratio 0.90 Activated Partial Thromboplast Time 37.5 H Subjective 24 Hr Interval Summary Free Text/Dictation Status post renal biopsy today patient has minimal pain Exam/Review of Systems Exam Vitals Vital Signs Date Temp Pulse Resp B/P (MAP) Pulse Ox O2 O2 Flow FiO2 Time Delivery Rate 08/16/18 98.3 87 18 140/79 100 Room Air 16:00 (99) Intake and Output 08/15/18 08/15/18 08/16/18 1515:00 23:00 07:00 IntakeIntake Total 1010 ml 400 ml BalanceBalance 1010 ml 400 ml Exam Constitutional: alert, oriented Respiratory: clear to auscultation Cardiovascular: regular rate and rhythm Gastrointestinal: soft ttp back Results Results 24hrs Laboratory Tests Test 08/15/18 18:47 Prothrombin Time 12.3 Prothrombin Time Ratio 1.0 INR International Normalized Ratio 0.90 Activated Partial Thromboplast Time 37.5 H Medications Medication Current Medications IV Flush (NS 3 ml) 3 ml PER PROTOCOL IV ; Start 08/10/18 at 19:30 Ondansetron HCl (Zofran Inj) 4 mg Q6H PRN IV NAUSEA/VOMITING; Start 08/10/18 at 19:30 Acetaminophen (Tylenol Tab) 650 mg Q6H PRN PO .PAIN 1-3 OR TEMP; Start 08/10/18 at 19:30 Acetaminophen (Tylenol Supp) 650 mg Q6H PRN ID .PAIN 1-3 OR TEMP; Start 08/10/18 at 19:30 Docusate Sodium (Colace) 100 mg Q12H PRN PO .CONSTIPATION; Start 08/10/18 at 19:30 Magnesium Hydroxide (Milk Of Mag) 30 ml DAILY PRN PO .CONSTIPATION; Start 08/10/18 at 19:30 Bisacodyl (Dulcolax) 5 mg DAILY PRN PO .CONSTIPATION; Start 08/10/18 at 19:30 Pantoprazole (Protonix Tab) 40 mg DAILY@06 PO Last administered on 08/15/18at 05:55; Admin Dose 40 MG; Start 08/11/18 at 06:00 Hydralazine HCl (Apresoline) 10 mg Q6H PRN IV ELEVATED BLOOD PRESSURE Last administered on 08/14/18at 16:00; Admin Dose 10 MG; Start 08/10/18 at 22:00 Amlodipine Besylate (Norvasc) 5 mg BID PO Last administered on 08/16/18at 09:36; Admin Dose 5 MG; Start 08/11/18 at 21:00 Potassium Chloride (Klor-Con 20) 20 meq TID PO Last administered on 08/16/18 13:56; Admin Dose 20 MEQ; Start 08/12/18 at 21:00 Losartan Potassium (Cozaar) 100 mg DAILY PO Last administered on 08/16/18 09:37; Admin Dose 100 MG; Start 08/14/18 at 09:00 Ferric Sodium Gluconate Complex 125 mg/Sodium Chloride 110 ml @ 110 mls/hr DAILY@1300 IVPB Last administered on 08/16/18 13:56; Admin Dose 110 MLS/HR; Start 08/13/18 at 16:00; Stop 08/17/18 at 13:59 Hydralazine HCl (Apresoline) 25 mg TID PO Last administered on 08/16/18at 13:58; Admin Dose 25 MG; Start 08/14/18 at 13:00 KATIANA VERGARA MD August 16, 2018 16:17
[2018-08-17 02:00] VITALS: BP 125/63; PULSE 72; RESP 17
[2018-08-17] MEDS: PANTOPRAZOLE (EC) 40 MG TAB PO SCH (05:50)
[2018-08-17 08:00] VITALS: BP 150/73; PULSE 83; RESP 17
[2018-08-17] MEDS: AMLODIPINE 5 MG TAB PO SCH ×2 (08:34→21:33)
[2018-08-17] MEDS: LOSARTAN 50 MG TAB PO SCH (08:35)
[2018-08-17] MEDS: POTASSIUM CHLORIDE (SR) 20 MEQ TAB PO SCH ×2 (08:35→13:00)
[2018-08-17] MEDS: SOD FERRIC GLUC COMPLX 125 MG in SOD CHLORIDE 0.9% 100 ML IVPB SCH (13:04)
[2018-08-17 14:00] VITALS: BP 158/79; PULSE 77; RESP 17
--- NOTE | 2018-08-17 14:53 | PN ---
Date/Time of Note Date/Time of Note DATE: 08/17/18 TIME: 14:51 Assessment/Plan VTE Prophylaxis Risk score (from Ns)>0 risk: 2 SCD applied (from Ns): Yes Pharmacological prophylaxis: NA/contraindicated Pharm contraindication: low risk/ambulating Lines/Catheters IV [facility] Saline Lock Urinary Cath still in place: No Assessment/Plan Assessment/Plan 1 Hypokalemia pending dionna/ renin , MG Level wnl 2. hypertensive urgency, resolved 3. Possible underlying chronic kidney disease due to hypertensive nephrosclerosis with GERBER ? with 5 gms proteinuria with low complements 4. Anemia with normal fe stuides but microcytic 5. Secondary hyperparathyroidism, PTH elevated, calcium ionized is normal?. 6. Bilateral simple kidney cysts. 7. Hepatitis B pos a/b Assessment/Plan - hold K due to hyperkalemia - hold Fe - GI consult for microcytic anemia -cw amlodipine/losaratn/hydralzine - sp renal biopsy -DVT proph -GI proph. Protonix Result Diagram: 08/17/18 0513 08/17/18 1133 Results 24hrs Laboratory Tests Test 08/16/18 18:38 08/17/18 05:13 08/17/18 11:33 08/17/18 12:28 Hemoglobin 7.4 L 7.3 L Hematocrit 23.1 L 23.3 L White Blood Count 7.8 Red Blood Count 3.74 L Mean Corpuscular 62.3 L Volume Mean Corpuscular 19.5 L Hemoglobin Mean Corpuscular 31.3 L Hemoglobin Concent Red Cell 17.4 H Distribution Width Platelet Count 345 Mean Platelet 9.7 Volume Immature 0.500 H Granulocytes % Neutrophils % 61.3 Lymphocytes % 24.5 Monocytes % 12.1 H Eosinophils % 1.2 Basophils % 0.4 Nucleated Red 0.6 H Blood Cells % Immature 0.040 H Granulocytes # Neutrophils # 4.8 Lymphocytes # 1.9 Monocytes # 0.9 Eosinophils # 0.1 Basophils # 0.0 Nucleated Red 0.1 H Blood Cells # Sodium Level 141 Potassium Level 5.4 H 5.4 H Chloride Level 111 H Carbon Dioxide 20 L Level Anion Gap 10 Blood Urea 34 H Nitrogen Creatinine 2.42 H Est Glomerular Filtrat Rate mL/min Glucose Level 100 Calcium Level 9.3 Lab Scanned Report REFERENCE LAB Subjective 24 Hr Interval Summary Free Text/Dictation anemic from 8.6>7.3 no bleeding note sp renal biopsy yesterday Exam/Review of Systems Exam Vitals Vital Signs Date Temp Pulse Resp B/P (MAP) Pulse Ox O2 O2 Flow FiO2 Time Delivery Rate 08/17/18 97.8 83 17 150/73 99 Room Air 08:00 (98) Intake and Output 08/16/18 08/16/18 08/17/18 1515:00 23:00 07:00 IntakeIntake Total 210 ml 600 ml BalanceBalance 210 ml 600 ml Exam Constitutional: alert, oriented Respiratory: clear to auscultation Cardiovascular: regular rate and rhythm Gastrointestinal: soft ttp back Results Results 24hrs Laboratory Tests Test 08/16/18 18:38 08/17/18 05:13 08/17/18 11:33 08/17/18 12:28 Hemoglobin 7.4 L 7.3 L Hematocrit 23.1 L 23.3 L White Blood Count 7.8 Red Blood Count 3.74 L Mean Corpuscular 62.3 L Volume Mean Corpuscular 19.5 L Hemoglobin Mean Corpuscular 31.3 L Hemoglobin Concent Red Cell 17.4 H Distribution Width Platelet Count 345 Mean Platelet 9.7 Volume Immature 0.500 H Granulocytes % Neutrophils % 61.3 Lymphocytes % 24.5 Monocytes % 12.1 H Eosinophils % 1.2 Basophils % 0.4 Nucleated Red 0.6 H Blood Cells % Immature 0.040 H Granulocytes # Neutrophils # 4.8 Lymphocytes # 1.9 Monocytes # 0.9 Eosinophils # 0.1 Basophils # 0.0 Nucleated Red 0.1 H Blood Cells # Sodium Level 141 Potassium Level 5.4 H 5.4 H Chloride Level 111 H Carbon Dioxide 20 L Level Anion Gap 10 Blood Urea 34 H Nitrogen Creatinine 2.42 H Est Glomerular Filtrat Rate mL/min Glucose Level 100 Calcium Level 9.3 Lab Scanned Report REFERENCE LAB Medications Medication Current Medications IV Flush (NS 3 ml) 3 ml PER PROTOCOL IV ; Start 08/10/18 at 19:30 Ondansetron HCl (Zofran Inj) 4 mg Q6H PRN IV NAUSEA/VOMITING; Start 08/10/18 at 19:30 Acetaminophen (Tylenol Tab) 650 mg Q6H PRN PO .PAIN 1-3 OR TEMP Last administered on 08/16/18at 18:06; Admin Dose 650 MG; Start 08/10/18 at 19:30 Acetaminophen (Tylenol Supp) 650 mg Q6H PRN [place] .PAIN 1-3 OR TEMP; Start 08/10/18 at 19:30 Docusate Sodium (Colace) 100 mg Q12H PRN PO .CONSTIPATION; Start 08/10/18 at 19:30 Magnesium Hydroxide (Milk Of Mag) 30 ml DAILY PRN PO .CONSTIPATION; Start 08/10/18 at 19:30 Bisacodyl (Dulcolax) 5 mg DAILY PRN PO .CONSTIPATION; Start 08/10/18 at 19:30 Pantoprazole (Protonix Tab) 40 mg DAILY@06 PO Last administered on 08/17/18 05:50; Admin Dose 40 MG; Start 08/11/18 at 06:00 Hydralazine HCl (Apresoline) 10 mg Q6H PRN IV ELEVATED BLOOD PRESSURE Last administered on 08/14/18 16:00; Admin Dose 10 MG; Start 08/10/18 at 22:00 Amlodipine Besylate (Norvasc) 5 mg BID PO Last administered on 08/17/18at 08:34; Admin Dose 5 MG; Start 08/11/18 at 21:00 Losartan Potassium (Cozaar) 100 mg DAILY PO Last administered on 08/17/18 08:35; Admin Dose 100 MG; Start 08/14/18 at 09:00 Hydralazine HCl (Apresoline) 25 mg TID PO Last administered on 08/17/18 14:07; Admin Dose 25 MG; Start 08/14/18 at 13:00 KATIANA VERGARA MD August 17, 2018 14:53
[2018-08-17] MEDS ORDERED: BISACODYL (EC) 5 MG TAB PO ONE (17:00)
[2018-08-17] MEDS ORDERED: PEG/ELECTROLYTES 4L BTL PO ONE (17:00)
--- NOTE | 2018-08-17 17:01 | CONS ---
Assessment/Plan Assessment/Plan Hospital Course (Demo Recall) Summary Assessment and Plan: Assessment: Microcytic anemia Hyperkalemia- today -Hypokalemia noted on admission HTN Renal insufficiency- s/p right kidney biopsy Renal cyst Hepatitis B Core AB -positive- IgM pending -Recommend to to be rechecked in 3-6 months for further Hepatitis B work-up Plan: Given progressive microcytic amenia we will plan to r/o GI etiology with EGD/colonoscopy scheduled for tomorrow afternoon Endoscopy - risks/benefits/alternatives/indications of procedure and se dation/anesthesia discussed with patient who states understanding and gives informed consent to proceed at this time. Again noted patient currently agrees to procedures however she states she may change her mind in the morning and cancel EGD/colonoscopy A blood transfusion was ordered- patient refused- discussed with patient if hgb continues to drop she may require a blood transfusion prior to endoscopic evaluation, she verbalized understanding Monitor labs Patient seen in collaboration with Dr. Hinojosa CC: ELA HINOJOSA MD ; Consultation Date/Type/Reason Admit Date/Time August 10, 2018 at 16:41 Date of Consultation: August 17, 2018 Type of Consult GI Reason for Consultation Microcytic anemia Date/Time of Note DATE: 08/17/18 TIME: 16:31 Hx of Present Illness This is a 73-year-old [place] female past medical history of hypertension who was sent to the hospital by her primary care physician for hypokalemia work-up. Patient initially noted to have uncontrolled hypertension possibly underlying chronic kidney disease. Admission patient's hemoglobin was noted to be 8.6 which has steadily been declining since admission. Today hemoglobin is 7.3 with a hematocrit of 23.3, MCV of 62.3, MCH 19.5. iron panel noted to be WNL. Patie nt states she is never had an EGD or colonoscopy. She denies overt signs of GI bleed including hematemesis, melena, or hematochezia. She denies unintentional weight loss and there is no family history of colon CA. Given progressive microcytic anemia we will plan for EGD colonoscopy to rule out GI etiology. Discussed with patient risks and benefits of sedation and procedure patient currently is agreeable. However she states she may change her mind in the morning. At this time we will tentatively plan for EGD colonoscopy and start prep today. Review of Systems: A 12 system, review was conducted and is negative except as noted in the HPI or here. Past Medical History Home Meds Reported Medications Losartan Potassium* (Losartan Potassium*) 50 Mg Tablet, 50 MG PO DAILY, TAB 08/10/18 Amlodipine Besylate* (Norvasc*) 5 Mg Tablet, 5 MG PO DAILY, TAB 08/10/18 Medications Current Medications IV Flush (NS 3 ml) 3 ml PER PROTOCOL IV ; Start 08/10/18 at 19:30 Ondansetron HCl (Zofran Inj) 4 mg Q6H PRN IV NAUSEA/VOMITING; Start 08/10/18 at 19:30 Acetaminophen (Tylenol Tab) 650 mg Q6H PRN PO .PAIN 1-3 OR TEMP Last administered on 08/16/18at 18:06; Admin Dose 650 MG; Start 08/10/18 at 19:30 Acetaminophen (Tylenol Supp) 650 mg Q6H PRN NE .PAIN 1-3 OR TEMP; Start 08/10/18 at 19:30 Docusate Sodium (Colace) 100 mg Q12H PRN PO .CONSTIPATION; Start 08/10/18 at 19:30 Magnesium Hydroxide (Milk Of Mag) 30 ml DAILY PRN PO .CONSTIPATION; Start 08/10/18 at 19:30 Bisacodyl (Dulcolax) 5 mg DAILY PRN PO .CONSTIPATION; Start 08/10/18 at 19:30 Pantoprazole (Protonix Tab) 40 mg DAILY@06 PO Last administered on 08/17/18at 05:50; Admin Dose 40 MG; Start 08/11/18 at 06:00 Hydralazine HCl (Apresoline) 10 mg Q6H PRN IV ELEVATED BLOOD PRESSURE Last administered on 08/14/18at 16:00; Admin Dose 10 MG; Start 08/10/18 at 22:00 Amlodipine Besylate (Norvasc) 5 mg BID PO Last administered on 08/17/18 08:34; Admin Dose 5 MG; Start 08/11/18 at 21:00 Losartan Potassium (Cozaar) 100 mg DAILY PO Last administered on 08/17/18at 08:35; Admin Dose 100 MG; Start 08/14/18 at 09:00 Hydralazine HCl (Apresoline) 25 mg TID PO Last administered on 08/17/18at 14:07; Admin Dose 25 MG; Start 08/14/18 at 13:00 Allergies: Coded Allergies: No Known Allergy (Unverified , 08/10/18) Social History Smoking Status: Never smoker Exam/Review of Systems Exam Vitals Vital Signs Date Temp Pulse Resp B/P (MAP) Pulse Ox O2 O2 Flow FiO2 Time Delivery Rate 08/17/18 97.8 83 17 150/73 99 Room Air 08:00 (98) Intake and Output 08/16/18 08/16/18 08/17/18 1515:00 23:00 07:00 IntakeIntake Total 210 ml 600 ml BalanceBalance 210 ml 600 ml Exam PHYSICAL EXAMINATION: GENERAL: Well developed, well nourished, alert & oriented x 3, in no acute distress SKIN: Erythema to left forearm HEAD: Normocephalic, atraumatic, no tenderness. EYES: Pupils equal reactive to light and accommodation, no discharge. EARS/NOSE AND THROAT: Ears normal, nose normal, oropharynx normal NECK: Supple, no masses CHEST: Inspection within normal limits. CARDIOVASCULAR: Heart: Regular rate and rhythm RESPIRATORY: Lungs clear to auscultation GASTROINTESTINAL AND LIVER: Abdomen: Soft, non tenderness, non-distended, no hernias, no masses, no organomegaly, no ascites, no guarding, no rebound tenderness, normoactive bowel sounds. Rectal: Deferred. EXTREMITIES: No cyanosis, clubbing or edema. Results Result Diagram: 08/17/18 0513 08/17/18 1133 Results 24hrs Laboratory Tests Test 08/16/18 18:38 08/17/18 05:13 08/17/18 11:33 08/17/18 12:28 Hemoglobin 7.4 L 7.3 L Hematocrit 23.1 L 23.3 L White Blood Count 7.8 Red Blood Count 3.74 L Mean Corpuscular 62.3 L Volume Mean Corpuscular 19.5 L Hemoglobin Mean Corpuscular 31.3 L Hemoglobin Concent Red Cell 17.4 H Distribution Width Platelet Count 345 Mean Platelet 9.7 Volume Immature 0.500 H Granulocytes % Neutrophils % 61.3 Lymphocytes % 24.5 Monocytes % 12.1 H Eosinophils % 1.2 Basophils % 0.4 Nucleated Red 0.6 H Blood Cells % Immature 0.040 H Granulocytes # Neutrophils # 4.8 Lymphocytes # 1.9 Monocytes # 0.9 Eosinophils # 0.1 Basophils # 0.0 Nucleated Red 0.1 H Blood Cells # Sodium Level 141 Potassium Level 5.4 H 5.4 H Chloride Level 111 H Carbon Dioxide 20 L Level Anion Gap 10 Blood Urea 34 H Nitrogen Creatinine 2.42 H Est Glomerular Filtrat Rate mL/min Glucose Level 100 Calcium Level 9.3 Lab Scanned Report REFERENCE LAB Medications Medication Current Medications IV Flush (NS 3 ml) 3 ml PER PROTOCOL IV ; Start 08/10/18 at 19:30 Ondansetron HCl (Zofran Inj) 4 mg Q6H PRN IV NAUSEA/VOMITING; Start 08/10/18 at 19:30 Acetaminophen (Tylenol Tab) 650 mg Q6H PRN PO .PAIN 1-3 OR TEMP Last administered on 08/16/18at 18:06; Admin Dose 650 MG; Start 08/10/18 at 19:30 Acetaminophen (Tylenol Supp) 650 mg Q6H PRN NE .PAIN 1-3 OR TEMP; Start 08/10/18 at 19:30 Docusate Sodium (Colace) 100 mg Q12H PRN PO .CONSTIPATION; Start 08/10/18 at 19:30 Magnesium Hydroxide (Milk Of Mag) 30 ml DAILY PRN PO .CONSTIPATION; Start 08/10/18 at 19:30 Bisacodyl (Dulcolax) 5 mg DAILY PRN PO .CONSTIPATION; Start 08/10/18 at 19:30 Pantoprazole (Protonix Tab) 40 mg DAILY@06 PO Last administered on 08/17/18at 05:50; Admin Dose 40 MG; Start 08/11/18 at 06:00 Hydralazine HCl (Apresoline) 10 mg Q6H PRN IV ELEVATED BLOOD PRESSURE Last administered on 08/14/18at 16:00; Admin Dose 10 MG; Start 08/10/18 at 22:00 Amlodipine Besylate (Norvasc) 5 mg BID PO Last administered on 08/17/18 08:34; Admin Dose 5 MG; Start 08/11/18 at 21:00 Losartan Potassium (Cozaar) 100 mg DAILY PO Last administered on 08/17/18 08:35; Admin Dose 100 MG; Start 08/14/18 at 09:00 Hydralazine HCl (Apresoline) 25 mg TID PO Last administered on 5/15/19at 14:07; Admin Dose 25 MG; Start 08/14/18 at 13:00 KRISTINA PLATA August 17, 2018 16:41
[2018-08-17 19:59] VITALS: BP 148/81; PULSE 82; RESP 18
[2018-08-18] VITALS (12 sets, daily range): BP systolic 64–166; BP diastolic 66–93; PULSE 69–89; RESP 16–23
[2018-08-18] MEDS: PANTOPRAZOLE (EC) 40 MG TAB PO SCH (05:36)
[2018-08-18] MEDS ORDERED: BISACODYL (EC) 5 MG TAB PO ONE (06:00)
[2018-08-18] MEDS ORDERED: PEG/ELECTROLYTES 4L BTL PO ONE (06:00)
[2018-08-18] MEDS: AMLODIPINE 5 MG TAB PO SCH ×2 (08:42→20:48)
[2018-08-18] MEDS: LOSARTAN 50 MG TAB PO SCH (08:42)
--- NOTE | 2018-08-18 15:28 | PREAC ---
Date/Time of Note Date/Time of Note DATE: 08/18/18 TIME: 15:25 Anesthesia Eval and Record Evaluation Time Pre-Procedure Interview DATE: 08/18/18 TIME: 15:25 Age 73 Sex female NPO: 8 hrs Preoperative diagnosis progressive anemia Planned procedure EGD, colonoscopy Past Medical History Past Medical History: Includes Cardio: HTN Heme: Anemia Surgery & Anesthesia Issues No known issue Meds Anticoagulation: No Beta Tobin within 24 hr: No Reason Beta Tobin not given: Pt. not on B-Tobin Reported Medications Losartan Potassium* (Losartan Potassium*) 50 Mg Tablet, 50 MG PO DAILY, TAB 08/10/18 Amlodipine Besylate* (Norvasc*) 5 Mg Tablet, 5 MG PO DAILY, TAB 08/10/18 Current Medications IV Flush (NS 3 ml) 3 ml PER PROTOCOL IV ; Start 08/10/18 at 19:30 Ondansetron HCl (Zofran Inj) 4 mg Q6H PRN IV NAUSEA/VOMITING; Start 08/10/18 at 19:30 Acetaminophen (Tylenol Tab) 650 mg Q6H PRN PO .PAIN 1-3 OR TEMP Last administered on 08/16/18at 18:06; Admin Dose 650 MG; Start 08/10/18 at 19:30 Acetaminophen (Tylenol Supp) 650 mg Q6H PRN [place] .PAIN 1-3 OR TEMP; Start 08/10/18 at 19:30 Docusate Sodium (Colace) 100 mg Q12H PRN PO .CONSTIPATION; Start 08/10/18 at 19:30 Magnesium Hydroxide (Milk Of Mag) 30 ml DAILY PRN PO .CONSTIPATION; Start 08/10/18 at 19:30 Bisacodyl (Dulcolax) 5 mg DAILY PRN PO .CONSTIPATION; Start 08/10/18 at 19:30 Pantoprazole (Protonix Tab) 40 mg DAILY@06 PO Last administered on 08/18/18at 05:36; Admin Dose 40 MG; Start 08/11/18 at 06:00 Hydralazine HCl (Apresoline) 10 mg Q6H PRN IV ELEVATED BLOOD PRESSURE Last administered on 08/14/18at 16:00; Admin Dose 10 MG; Start 08/10/18 at 22:00 Amlodipine Besylate (Norvasc) 5 mg BID PO Last administered on 08/18/18at 08:42; Admin Dose 5 MG; Start 08/11/18 at 21:00 Losartan Potassium (Cozaar) 100 mg DAILY PO Last administered on 08/18/18at 08:42; Admin Dose 100 MG; Start 08/14/18 at 09:00 Hydralazine HCl (Apresoline) 25 mg TID PO Last administered on 08/18/18at 08:42; Admin Dose 25 MG; Start 08/14/18 at 13:00 Meds reviewed: Yes Allergies Coded Allergies: No Known Allergy (Unverified , 08/10/18) Allergies Reviewed: Yes Labs/Studies Labs Reviewed: Reviewed by anesthesiologist Result Diagram: 08/18/18 0706 08/18/18 0706 Laboratory Tests 08/18/18 07:06 test: N/A Studies: ECG (sr), CXR (n/a) Pre-procedure Exam Last vitals Vital Signs Date Temp Pulse Resp B/P (MAP) Pulse Ox O2 O2 Flow FiO2 Time Delivery Rate 08/18/18 80 138/68 11:40 (91) 08/18/18 98.6 18 96 08:00 08/17/18 Room Air 14:00 Airway: Adequate mouth opening Mallampati: Mallampati I Teeth: Normal Lung: Normal Heart: Normal ASA Physical Status ASA physical status: 2 Emergency: None Planned Anesthetic General/MAC: MAC Planned Pain Management Parenteral pain med Pre-operative Attestations Prior to commencing anesthesia and surgery, the patient was re-evaluated, there was verification of: *The patient's identity *The results of appropriate recent lab work and preoperative vital signs *The above evaluation not changing prior to induction *Anesthetic plan, risk benefits, alternative and complications discussed with patient/family; questions answered; patient/family understands, accepts and wishes to proceed. DICK CONROY MD August 18, 2018 15:28
[2018-08-18] MEDS ORDERED: FENTAnyl 50 MCG/ML VIAL IV PRN (15:30)
[2018-08-18] MEDS ORDERED: ONDANSETRON 4 MG INJ IV PRN (15:30)
--- NOTE | 2018-08-18 15:32 | HPN ---
Date/Time of Note Date/Time of Note DATE: 08/18/18 TIME: 15:32 Interval H&P Admission Note Pt. seen H&P reviewed: No system changes MEAGHAN NOVAK August 18, 2018 15:32
[2018-08-18] MEDS ORDERED: FENTAnyl 50 MCG/ML VIAL ONE (15:35)
[2018-08-18] MEDS ORDERED: PROPOFOL 20 ML ONE (15:35)
--- NOTE | 2018-08-18 17:47 | PN ---
Date/Time of Note Date/Time of Note DATE: 08/18/18 TIME: 17:44 Assessment/Plan VTE Prophylaxis Risk score (from [facility])>0 risk: 2 SCD applied (from [facility]): Yes Pharmacological prophylaxis: NA/contraindicated Pharm contraindication: low risk/ambulating Lines/Catheters IV Catheter Type (from [facility]): [place] Urinary Cath still in place: No Assessment/Plan Hospital Course 1 Hypokalemia pending dionna/ renin , MG Level wnl 2. hypertensive urgency, resolved 3. Possible underlying chronic kidney disease due to hypertensive nephrosclerosis with GERBER ? with 5 gms proteinuria with low complements 4. Anemia with normal fe stuides but microcytic 5. Secondary hyperparathyroidism, PTH elevated, calcium ionized is normal?. 6. Bilateral simple kidney cysts. 7. Hepatitis B pos a/b Assessment/Plan -restart low dose K - egd/colo today -cw amlodipine/losaratn/hydralzine - sp renal biopsy -DVT proph -GI proph. Protonix Result Diagram: 08/18/18 0706 08/18/18 0706 Results 24hrs Laboratory Tests Test 08/17/18 17:50 08/18/18 07:06 08/18/18 11:54 Stool Occult Blood NEGATIVE White Blood Count 7.8 Red Blood Count 3.66 L Hemoglobin 7.2 L Hematocrit 22.6 L Mean Corpuscular Volume 61.7 L Mean Corpuscular Hemoglobin 19.7 L Mean Corpuscular 31.9 L Hemoglobin Concent Red Cell Distribution Width 17.8 H Platelet Count 389 Mean Platelet Volume 10.0 Immature Granulocytes % 0.400 Neutrophils % 66.2 Lymphocytes % 21.6 Monocytes % 10.4 Eosinophils % 0.9 Basophils % 0.5 Nucleated Red Blood Cells % 0.4 H Immature Granulocytes # 0.030 Neutrophils # 5.2 Lymphocytes # 1.7 Monocytes # 0.8 Eosinophils # 0.1 Basophils # 0.0 Nucleated Red Blood Cells # 0.0 Absolute Reticulocyte Count 0.085 Percent Reticulocyte Count 2.3 H Sodium Level 146 H Potassium Level 3.8 Chloride Level 112 H Carbon Dioxide Level 24 Anion Gap 10 Blood Urea Nitrogen 36 H Creatinine 2.22 H Est Glomerular Filtrat Rate mL/min Glucose Level 115 Calcium Level 9.5 Phosphorus Level 4.1 Magnesium Level 2.0 Vitamin B12 Level 559 Folate 14.5 Lab Scanned Report REFERENCE LAB Subjective 24 Hr Interval Summary Free Text/Dictation Plan for EGD and colonoscopy today Exam/Review of Systems Exam Vitals Vital Signs Date Temp Pulse Resp B/P (MAP) Pulse Ox O2 O2 Flow FiO2 Time Delivery Rate 08/18/18 98.0 88 16 145/88 95 Room Air 16:50 (107) 08/18/18 2.0 16:18 Intake and Output 08/17/18 08/17/18 08/18/18 1515:00 23:00 07:00 IntakeIntake Total 110 ml 800 ml 800 ml BalanceBalance 110 ml 800 ml 800 ml Exam Constitutional: alert, oriented Respiratory: clear to auscultation Cardiovascular: regular rate and rhythm Gastrointestinal: soft ttp back Results Results 24hrs Laboratory Tests Test 08/17/18 17:50 08/18/18 07:06 08/18/18 11:54 Stool Occult Blood NEGATIVE White Blood Count 7.8 Red Blood Count 3.66 L Hemoglobin 7.2 L Hematocrit 22.6 L Mean Corpuscular Volume 61.7 L Mean Corpuscular Hemoglobin 19.7 L Mean Corpuscular 31.9 L Hemoglobin Concent Red Cell Distribution Width 17.8 H Platelet Count 389 Mean Platelet Volume 10.0 Immature Granulocytes % 0.400 Neutrophils % 66.2 Lymphocytes % 21.6 Monocytes % 10.4 Eosinophils % 0.9 Basophils % 0.5 Nucleated Red Blood Cells % 0.4 H Immature Granulocytes # 0.030 Neutrophils # 5.2 Lymphocytes # 1.7 Monocytes # 0.8 Eosinophils # 0.1 Basophils # 0.0 Nucleated Red Blood Cells # 0.0 Absolute Reticulocyte Count 0.085 Percent Reticulocyte Count 2.3 H Sodium Level 146 H Potassium Level 3.8 Chloride Level 112 H Carbon Dioxide Level 24 Anion Gap 10 Blood Urea Nitrogen 36 H Creatinine 2.22 H Est Glomerular Filtrat Rate mL/min Glucose Level 115 Calcium Level 9.5 Phosphorus Level 4.1 Magnesium Level 2.0 Vitamin B12 Level 559 Folate 14.5 Lab Scanned Report REFERENCE LAB Medications Medication Current Medications IV Flush (NS 3 ml) 3 ml PER PROTOCOL IV ; Start 08/10/18 at 19:30 Ondansetron HCl (Zofran Inj) 4 mg Q6H PRN IV NAUSEA/VOMITING; Start 08/10/18 at 19:30 Acetaminophen (Tylenol Tab) 650 mg Q6H PRN PO .PAIN 1-3 OR TEMP Last administered on 08/16/18 18:06; Admin Dose 650 MG; Start 08/10/18 at 19:30 Acetaminophen (Tylenol Supp) 650 mg Q6H PRN [place] .PAIN 1-3 OR TEMP; Start 08/10/18 at 19:30 Docusate Sodium (Colace) 100 mg Q12H PRN PO .CONSTIPATION; Start 08/10/18 at 19:30 Magnesium Hydroxide (Milk Of Mag) 30 ml DAILY PRN PO .CONSTIPATION; Start 08/10/18 at 19:30 Bisacodyl (Dulcolax) 5 mg DAILY PRN PO .CONSTIPATION; Start 08/10/18 at 19:30 Pantoprazole (Protonix Tab) 40 mg DAILY@06 PO Last administered on 08/18/18at 05:36; Admin Dose 40 MG; Start 08/11/18 at 06:00 Hydralazine HCl (Apresoline) 10 mg Q6H PRN IV ELEVATED BLOOD PRESSURE Last administered on 08/14/18at 16:00; Admin Dose 10 MG; Start 08/10/18 at 22:00 Amlodipine Besylate (Norvasc) 5 mg BID PO Last administered on 08/18/18 08:42; Admin Dose 5 MG; Start 08/11/18 at 21:00 Losartan Potassium (Cozaar) 100 mg DAILY PO Last administered on 08/18/18 08:42; Admin Dose 100 MG; Start 08/14/18 at 09:00 Hydralazine HCl (Apresoline) 25 mg TID PO Last administered on 08/18/18at 08:42; Admin Dose 25 MG; Start 08/14/18 at 13:00 Fentanyl (Sublimaze) 50 mcg PACU ORDER PRN IV MOD PAIN 4-6; Start 08/18/18 at 15:30; Stop 08/18/18 at 19:30 Ondansetron HCl (Zofran Inj) 4 mg PACU ORDER PRN IV NAUSEA/VOMITING; Start 08/18/18 at 15:30; Stop 08/18/18 at 19:30 KATIANA VERGARA MD August 18, 2018 17:47
[2018-08-18] MEDS: POTASSIUM CHLORIDE (SR) 20 MEQ TAB PO SCH (20:48)
[2018-08-19 02:00] VITALS: BP 123/63; PULSE 88; RESP 18
[2018-08-19] MEDS: PANTOPRAZOLE (EC) 40 MG TAB PO SCH (05:57)
[2018-08-19 08:00] VITALS: BP_SYST 118; BP_SYST 140; BP_DIAS 80; PULSE 76; PULSE 88; RESP 18; RESP 20
[2018-08-19] MEDS: POTASSIUM CHLORIDE (SR) 20 MEQ TAB PO SCH (08:40)
[2018-08-19] MEDS: LOSARTAN 50 MG TAB PO SCH (08:40)
[2018-08-19] MEDS: AMLODIPINE 5 MG TAB PO SCH (08:41)
--- NOTE | 2018-08-19 09:12 | PAC ---
Date/Time of Note Date/Time of Note DATE: 08/19/18 TIME: 09:12 Post-Anesthesia Notes Post-Anesthesia Note Last documented vital signs Vital Signs Date Temp Pulse Resp B/P (MAP) Pulse Ox O2 O2 Flow FiO2 Time Delivery Rate 08/19/18 98.8 76 18 140/80 96 08:00 (100) 08/19/18 Room Air 02:00 08/18/18 2.0 16:18 Activity: WNL Respiratory function: WNL Cardiovascular function: WNL Mental status: Baseline Pain reasonably controlled: Yes Hydration appropriate: Yes Nausea/Vomiting absent: No DICK CONROY MD August 19, 2018 09:12
--- NOTE | 2018-08-19 11:41 | DS ---
Date/Time of Note Date/Time of Note DATE: 08/19/18 TIME: 11:40 Discharge Summary Admission/Discharge Info Admit Date/Time August 10, 2018 at 16:41 Discharge Date/Time Consults Dr Davis, GI Procedures colonoscopy, EGD, s/p renal biopsy Hospital Course The patient is a 73-year-old female with history of hypertension, recently came from [place] and was seen by the PMD and here for hypokalemia. Potassium 2.5, BUN 39, creatinine 2.20. The patient does not know if she has any history of kidney disease. The patient is going to be admitted for further management. PAST MEDICAL HISTORY: Positive for hypertension. ALLERGY HISTORY: SHE DENIES. SOCIAL HISTORY: She denies. MEDICATION HISTORY: At home, the patient was on: 1. Losartan. 2. Tylenol. REVIEW OF SYSTEMS: HEENT: Unremarkable. RESPIRATORY: Unremarkable. CARDIOVASCULAR: Unremarkable. ABDOMEN: Unremarkable. EXTREMITIES: No swelling. CENTRAL NERVOUS SYSTEM: Unremarkable. GENITOURINARY: No dysuria, hematuria, history of kidney stone, no history of NSAID abuse. SKIN: No history of skin rash. PHYSICAL EXAMINATION: GENERAL: The patient is awake, alert. VITAL SIGNS: Pulse of 64, blood pressure of 178. HEAD: Atraumatic, normocephalic. Pupils equal, reactive to light. NECK: Supple, no JVD. LUNGS: Clear. CARDIOVASCULAR: S1, S2 are normal. ABDOMEN: Soft, nontender. Bowel sounds positive. No palpable mass or hepatosplenomegaly. EXTREMITIES: No cyanosis, clubbing or edema. CENTRAL NERVOUS SYSTEM: The patient is awake, alert, no focal deficit. LABORATORY DATA: Potassium 4.5, BUN 39, creatinine 2.20, hematocrit 27.7. IMPRESSION: 1. Hypokalemia. 2. Uncontrolled hypertension. 3. Possible underlying chronic kidney disease due to hypertensive nephrosclero sis. 4. Possible anemia of chronic kidney disease. Diagnosis: 1. Hypokalemia due to unknown reason, more likely kidney related 2. hypertensive urgency, resolved 3. Possible underlying chronic kidney disease due to hypertensive nephrosclerosis with GERBER 4. Possible anemia of chronic kidney disease, no deficit of iron. 5. Secondary hyperparathyroidism, PTH elevated, calcium ionized is normal?. 6. Bilateral simple kidney cysts. 7. Hepatitis B pos a/b Patient was admitted to medical surgical unit, your ultrasound of kidney revealed medical disease. Patient have bilateral simple kidney cysts. UA, urine sodium, urine protein creatinine ratio is positive for nephrosclerosis more likely due to hypertension nephrotic syndrome. Supplemented daily potass ium IV fluid with potassium supplementation. Patient was on reasonable blood pressure control. EGD and colonoscopy was performed. Colonoscopy need to be repeated outpatient due to poor preparation. EGD revealed duodenal ulcers. Patient was started on Protonix twice a day. Biopsy of the kidney was performed pathology is pending. Patient was instructed to follow-up with nephrology closely due to for chronic kidney disease and possible start of dialysis. During hospitalization patient was clinically improved. She was discharged home with potassium supplements and iron supplements. He was instructed to keep a 2 g sodium diet and take her blood pressure medication collaterally. Gently patient was found positive for hepatitis B Home Meds Active Scripts Potassium Chloride* (K-Dur*) 20 Meq Tab.prt.sr, 20 MEQ PO BID for 30 Days Prov:FRANCISCO ASHFORD 08/19/18 Pantoprazole* (Pantoprazole*) 40 Mg Tablet.dr, 40 MG PO BID for 30 Days Prov:FRANCISCO ASHFORD 08/19/18 Losartan Potassium* (Cozaar*) 50 Mg Tablet, 100 MG PO DAILY for 30 Days, TAB Prov:FRANCISCO ASHFORD 08/19/18 Hydralazine Hcl* (Hydralazine Hcl*) 25 Mg Tab, 25 MG PO TID for 30 Days, TAB Prov:FRANCISCO ASHFORD 08/19/18 Reported Medications Amlodipine Besylate* (Norvasc*) 5 Mg Tablet, 5 MG PO DAILY, TAB 08/10/18 Discontinued Reported Medications Losartan Potassium* (Losartan Potassium*) 50 Mg Tablet, 50 MG PO DAILY, TAB 08/10/18 Follow-up Plan Oli/[facility] nephrology follow-up 2 weeks for the pathology of kidney PCP 1 week Primary Care Provider Not On Staff Doctor Time spent on discharge: < 30 minutes Pending Labs Laboratory Tests Test 08/18/18 11:54 08/19/18 04:31 Lab Scanned Report REFERENCE LAB [id number] White Blood Count 8.0 10^3/ul (4.8-10.8) Red Blood Count 3.77 10^6/ul (4.20-5.40) Hemoglobin 7.5 g/dl (12.0-16.0) Hematocrit 23.2 % (37.0-47.0) Mean Corpuscular Volume 61.5 fl (82.0-101.0) Mean Corpuscular Hemoglobin 19.9 pg (29.0-33.0) Mean Corpuscular 32.3 g/dl (32.0-37.0) Hemoglobin Concent Red Cell Distribution Width 17.8 % (11.5-14.5) Platelet Count 391 10^3/UL (140-415) Mean Platelet Volume 9.3 fl (7.4-10.4) Immature Granulocytes % 0.400 % (0.001-0.429) Neutrophils % 70.4 % (39.0-77.0) Lymphocytes % 19.0 % (15.0-51.0) Monocytes % 9.4 % (0.0-11.0) Eosinophils % 0.6 % (0.0-7.0) Basophils % 0.2 % (0.0-2.0) Nucleated Red Blood Cells % 0.4 /100WBC (0.0-0.0) Immature Granulocytes # 0.030 10^3/ul (0.0-0.031) Neutrophils # 5.6 10^3/ul (1.6-7.5) Lymphocytes # 1.5 10^3/ul (0.8-2.9) Monocytes # 0.8 10^3/ul (0.3-0.9) Eosinophils # 0.1 10^3/ul (0.0-0.5) Basophils # 0.0 10^3/ul (0.0-0.1) Nucleated Red Blood Cells # 0.0 10^3/ul (0.0-0.0) Sodium Level 143 mmol/L (135-144) Potassium Level 3.2 mmol/L (3.5-5.1) Chloride Level 109 mmol/L (97-110) Carbon Dioxide Level 22 mmol/L (21-31) Anion Gap 12 (5-13) Blood Urea Nitrogen 33 mg/dl (7-20) Creatinine 2.23 mg/dl (0.44-1.00) Est Glomerular Filtrat mL/min (>60) Rate mL/min Glucose Level 110 mg/dl (70-220) Calcium Level 9.3 mg/dl (8.4-10.2) Phosphorus Level 5.2 mg/dl (2.5-4.9) Magnesium Level 1.9 mg/dl (1.7-2.5) FRANCISCO ASHFORD August 19, 2018 11:41
--- NOTE | 2018-08-19 11:42 | PDOCDIS ---
Discharge Instructions DIAGNOSIS Discharge Diagnosis CKD, hypertension CONDITION [id number] Patient Condition: [id number] Stable ACTIVITY: [id number] Activity Restrictions: [id number] Slowly Increase Activity Rest between Activity Avoid heavy lifting No Sexual Activity FOLLOW UP/APPOINTMENTS Follow-up Plan PCP 1 week, give him colonoscopy and EGD results Dr Street 3 weeks, nephrology FRANCISCO ASHFORD August 19, 2018 11:42
[2018-08-19] MEDS ORDERED: PANT40TA4 PO (11:48)
[2018-08-19] MEDS ORDERED: LOSA50TA2 PO (11:48)
[2018-08-19] MEDS ORDERED: HYDR-3671 PO (11:48)
[2018-08-19] MEDS ORDERED: POTA20TA15 PO (11:48)
[2018-08-19 14:00] VITALS: BP 136/72; PULSE 84; RESP 20
== END 2018-08-19 16:00 | disposition home or self-care (01) | DRG 683 ==
LOC: E/R 13:29 → TEL 16:41 → PP2 08-14 14:40
PROVIDERS: ADMIT Internal Medicine Nephrology; ATTEND Internal Medicine Nephrology
PROC: 0TB03ZX Excision of Right Kidney, Percutaneous Approach, Diagnostic (ICD-10-PCS; 2018-08-16)
PROC: 0DJ08ZZ Inspection of Upper Intestinal Tract, Via Natural or Artificial Opening Endoscopic (ICD-10-PCS; principal; 2018-08-18 15:00)
PROC: 0DJD8ZZ Inspection of Lower Intestinal Tract, Via Natural or Artificial Opening Endoscopic (ICD-10-PCS; 2018-08-18 15:00)
DX: I12.9 Hypertensive chronic kidney disease with stage 1 through stage 4 chronic kidney disease, or unspecified chronic kidney disease (principal); N17.9 Acute kidney failure, unspecified; N25.81 Secondary hyperparathyroidism of renal origin; B19.10 Unspecified viral hepatitis B without hepatic coma; E87.6 Hypokalemia; N18.9 Chronic kidney disease, unspecified; I16.0 Hypertensive urgency; N28.1 Cyst of kidney, acquired; E87.5 Hyperkalemia; D63.1 Anemia in chronic kidney disease
CPT/HCPCS: 76775; 77012; 80048; 80053; 80061; 81001; 81003; 82088; 82270; 82330; 82436; 82570; 82607; 82652; 82746; 83540; 83735; 83935; 83970; 84100; 84132; 84133; 84155; 84156; 84165; 84166; 84244; 84300; 84484; 84560; 85014; 85018; 85025; 85045; 85610; 85651; 85730; 86038; 86160; 86320; 86325; 86592; 86704; 86709; 86803; 86850; 86900; 86901; 86920; 87340; 93005; 96374; J0360; J1650; J2250; J2916; J3010; J3480; J7030; J7040; Q5105